=== PATIENT | female | born 1995 | race Caucasian/White ===

== ENCOUNTER 2016-07-19 11:00 | Outpatient (CLI) | payer MEDICAID, OTHER | END 2016-07-19 11:01 | disposition home or self-care (01) | DX: Z11.3 Encounter for screening for infections with a predominantly sexual mode of transmission (principal) ==

== ENCOUNTER 2016-07-19 14:30 | Outpatient (CLI) | payer MEDICAID | END 2016-07-19 14:31 | disposition home or self-care (01) | DX: R10.9 Unspecified abdominal pain (principal) ==

== ENCOUNTER 2016-07-21 10:26 | Emergency (ER) | payer MEDICAID ==
[2016-07-21] MEDS ORDERED: SODIUM CHLORIDE 0.9% 1,000 ML IV ONE (12:17)
[2016-07-21] MEDS ORDERED: ONDANSETRON 4 MG/2 ML VIAL ONE (12:17)
[2016-07-21] MEDS ORDERED: KETOROLAC 30 MG/ML VIAL ONE (12:17)
[2016-07-21] MEDS ORDERED: IOPAMIDOL-300 100 ML VIAL IVP ONE (21:29)
== END 2016-07-21 16:25 | disposition home or self-care (01) ==
DX: K52.9 Noninfective gastroenteritis and colitis, unspecified (principal)
CPT/HCPCS: 36415; 74177; 80053; 81003; 81025; 83690; 85025; 96374; 96375; 99283; 99284; Q9967

== ENCOUNTER 2017-01-23 09:20 | Outpatient (CLI) | payer MEDICAID | END 2017-01-23 09:21 | disposition home or self-care (01) | LOC: LAB.R 09:20 | PROVIDERS: ATTEND Nurse Practitioner Obstetrics & Gynecology | DX: Z11.3 Encounter for screening for infections with a predominantly sexual mode of transmission (principal) | CPT/HCPCS: 87491; 87591 ==

== ENCOUNTER 2017-02-05 09:42 | Outpatient (CLI) | payer MEDICAID ==
--- NOTE | 2017-02-05 16:34 | XRAY Report ---
COMPLETE SINUS SERIES: 02/05/2017 HISTORY: Sinusitis. FINDINGS: The visualized paranasal sinuses are clear. No fluid levels noted. There is no significa nt mucosal thickening. There are no destructive bony changes. IMPRESSION: NEGATIVE EXAMINATION. JOB #: [id number] EXT JOB #:[id number]
== END 2017-02-05 09:43 | disposition home or self-care (01) ==
LOC: DI.N 09:42
PROVIDERS: ATTEND Physician Assistant
DX: J32.9 Chronic sinusitis, unspecified (principal)
CPT/HCPCS: 70220

== ENCOUNTER 2017-05-02 14:34 | Outpatient (CLI) | payer MEDICAID | END 2017-05-02 14:35 | disposition home or self-care (01) | LOC: LAB 14:34 | PROVIDERS: ATTEND Registered Nurse | DX: O20.0 Threatened abortion (principal) | CPT/HCPCS: 36415; 84702 ==

== ENCOUNTER 2017-06-23 01:56 | Emergency (ER) | payer MEDICAID ==
[2017-06-23] MEDS ORDERED: SODIUM CHLORIDE 0.9% 1,000 ML IV ONE (02:14)
[2017-06-23 02:45] LABS: BILIRUBIN,URINE NEGATIVE (NEGATIVE); GLUCOSE, URINE (UA) NEGATIVE (NEGATIVE); KETONES,URINE (UA) 15 mg/dL (NEGATIVE); LEUKOCYTE ESTERASE, URINE NEGATIVE (NEGATIVE); NITRITE,URINE NEGATIVE (NEGATIVE); OCCULT BLOOD,URINE NEGATIVE (NEGATIVE); PH,URINE 6.5 PH (5.0-7.5); PROTEIN,URINE NEGATIVE (NEGATIVE); UROBILINOGEN,URINE 0.2 (NORMAL) E.U./dL (NORMAL)
[2017-06-23 02:50] LABS: CLARITY,URINE CLEAR (CLEAR); HCG UR QUAL NEGATIVE
[2017-06-23] MEDS ORDERED: diphenhydrAMINE INJ 50 MG/ML VIAL IVP STA (03:01)
[2017-06-23] MEDS ORDERED: ACETAMINOPHEN 500 MG TABLET PO STA (03:01)
[2017-06-23] MEDS ORDERED: KETOROLAC 60 MG/2 ML VIAL IVP STA (03:01)
[2017-06-23] MEDS ORDERED: METOCLOPRAMIDE 10 MG/2 ML VIAL IVP STA (03:01)
--- NOTE | 2017-06-23 03:01 | ED Physician Documentation ---
PD HPI HEADACHE - Stated complaint Stated Complaint: MIGRAINE - Chief complaint Chief Complaint: Neuro - History obtained from History obtained from: Patient, Family - History of Present Illness Timing - onset: Today Timing - details: Gradual onset, Still present Worst headache ever?: Worst headache ever? (no) Location: Front Quality: Aching Associated symptoms: No: Fever, Stiff neck, Nausea, Vomiting, Weakness, Syncope Improved by: Rest, Dark room Worsened by: Light Similar symptoms before: No diagnosis Recently seen: Not recently seen - Additional information Additional information: Patient is a 22 year old female with a history of migraines who is presenting to the emergency department for a headache. Patient and partner state that it started about 9 hours ago. It started gradually and got progressively worse. Patient states that she has had migraines in the past and this is similar to her previous headaches. Review of Systems Constitutional: denies: Fever, Chills, Myalgias Eyes: reports: Photophobia. denies: Decreased vision Ears: denies: Ear pain, Drainage/discharge Nose: denies: Congestion, Epistaxis Throat: denies: Sore throat Cardiac: denies: Chest pain / pressure Respiratory: reports: Reviewed and negative GI: reports: Nausea. denies: Vomiting : reports: Reviewed and negative Skin: denies: Rash, Lesions Musculoskeletal: denies: Neck pain, Extremity pain Neurologic: reports: Headache. denies: Generalized weakness, Syncope, Altered mental status, Head injury, LOC Immunocompromised: denies: Immunocompromised PD PAST MEDICAL HISTORY - Past Medical History Past Medical History: Yes Respiratory: Asthma Neuro: Headache/migraine - Past Surgical History Past Surgical History: No - Present Medications Home Medications: Ambulatory Orders Medication Instructions Recorded Confirmed Albuterol Sulf [Ventolin Hfa 2 puffs IH Q6HR PRN 04/30/17 06/23/17 Inhaler] - Allergies Allergies/Adverse Reactions: Allergies Allergy/AdvReac Type Severity Reaction Status Date / Time No Known Drug Allergies Allergy Verified 06/23/17 02:02 - Social History Does the pt smoke?: No Smoking Status: Never smoker Does the pt drink ETOH?: Yes Does the pt have substance abuse?: No - Immunizations Immunizations are current?: Yes PD ED PE NORMAL - Vitals Vital signs reviewed: Yes - General General: Alert and oriented X 3, Well developed/nourished - HEENT HEENT: Atraumatic, PERRL, Moist mucous membranes, Pharynx benign - Neck Neck: Supple, no meningeal sign, No JVD - Cardiac Cardiac: RRR, No murmur - Respiratory Respiratory: No respiratory distress, Clear bilaterally - Abdomen Abdomen: Soft, Non tender, Non distended - Derm Derm: Normal color, Warm and dry, No rash - Extremities Extremities: No deformity, Normal ROM s pain - Neuro Neuro: Alert and oriented X 3, 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, No motor deficit, No sensory deficit, Normal speech Eye Opening: Spontaneous Motor: Obeys Commands Verbal: Oriented GCS Score: 15 PD ED PE EXPANDED - General General: Alert, In Pain Results - Vitals Vitals: Vital Signs - 24 hr 06/23/17 06/23/17 06/23/17 02:00 02:59 03:15 Temperature 36.9 C Heart Rate 72 71 105 H Respiratory 18 18 19 Rate Blood Pressure 109/70 125/81 H 125/98 H O2 Saturation 100 100 100 06/23/17 03:28 Temperature Heart Rate 106 H Respiratory 18 Rate Blood Pressure 124/88 H O2 Saturation 100 Oxygen O2 Source Room air - Labs Labs: Laboratory Tests 06/23/17 02:20 Urine Color YELLOW Urine Clarity CLEAR Urine pH 6.5 Ur Specific [place] 1.020 Urine Protein NEGATIVE Urine Glucose (UA) NEGATIVE Urine Ketones 15 H Urine Occult Blood NEGATIVE Urine Nitrite NEGATIVE Urine Bilirubin NEGATIVE Urine Urobilinogen 0.2 (NORMAL) Ur Leukocyte Esterase NEGATIVE Ur Microscopic Review NOT INDICATED Urine Culture Comments NOT INDICATED Urine HCG, Qual NEGATIVE PD MEDICAL DECISION MAKING - ED course Complexity details: reviewed old records, reviewed results, re-evaluated patient , considered differential, d/w patient, d/w family ED course: Patient was seen and examined at bedside. IV access was gained and urine was collected. Patient was treated with fluid bolus, toradol, reglan, bendadryl and tylenol. After the fluid bolus and the medication patient was re- evaluated. Patient states that her headache resolved entirely. Patient required no further work up and was stable for discharge with outpatient follow up. Departure - Departure Disposition: 01 Home, Self Care Clinical Impression: Headache Condition: Good Instructions: ED Headache Migraine Follow-Up: primary,care provider [Other] - Within 3 Days Comments: Your symptoms today were caused by a migraine headache. Lack of sleep and dehydration are two of the most common causes. it is important to stay well hydrated and get plenty of rest. You should take tylenol 1000mg and ibuprofen 600mg as needed for pain. You should keep track of any triggers (foods, activities, stressors). If your symptoms become more frequent or longer in duration you should follow up with your doctor and possibly a neurologist. you may return to the emergency department at any time for new, worsening or uncontrollable symptoms.
[2017-06-23 04:13] VITALS: BP 122/89
== END 2017-06-23 04:00 | disposition home or self-care (01) ==
LOC: ED 01:56
DX: G43.909 Migraine, unspecified, not intractable, without status migrainosus (principal)
CPT/HCPCS: 81003; 81025; 96361; 96374; 96375; 99284; A9270; 81001; 87086

== ENCOUNTER 2019-10-02 12:57 | Outpatient (CLI) | payer MEDICAID ==
--- NOTE | 2019-10-03 07:11 | Ultrasound Report ---
Reason: POSITIVE TEST Procedure Date: 10/02/2019 Accession Number: [id number] / [id number] Procedure: US - OB First Trimester CPT Code: Final Report FULL RESULT: EXAM: FIRST TRIMESTER OBSTETRIC ULTRASOUND (Less than 11 weeks) EXAM DATE: 10/02/2019 02:59 PM. CLINICAL HISTORY: POSITIVE TEST. LMP: 08/18/2019. COMPARISONS: None for this . TECHNIQUE: Transabdominal and transvaginal ultrasound examination with static image documentation. CLINICAL DATES: EGA 9 weeks 2 days with RADHA 05/04/2020 based on LMP. ASSESSMENT: Gestational Sac: Single intrauterine. Mean gestational sac diameter: 25.7 mm = 7 weeks 4 days. Embryo: CRL (crown-rump length) 13.0 mm = 7 weeks 4 days with RADHA 05/16/2020. Cardiac activity: 153 beats per minute. Yolk sac: 4.7 mm. Amniotic fluid: Not accurately assessed at this gestational age. Early placenta: Not visible at this gestational age. Other: No perigestational fluid collection demonstrated. MATERNAL STRUCTURES: Uterus: Anteverted. Unremarkable. Cervix: Closed. Right Ovary/Adnexa: The ovary measures 3.3 x 2.2 x 3.1 cm, volume 11.7 cc. Corpus luteum cyst measuring 2.1 x 1.6 x 1.9 cm. Otherwise unremarkable.. Left Ovary/Adnexa: The ovary measures 3.4 x 2.2 x 1.7 cm, volume 6.6 cc. Unremarkable. Free Fluid: Trace free fluid in pelvic cul-de-sac. Other: None. IMPRESSION: 1. Single viable intrauterine at EGA 7 weeks 4 days with RADHA 05/16/2020 based on crown-rump length, which is less than expected clinical dates. 2. Assigned dating is RADHA 05/16/2020 based on current ultrasound. 3. Trace free fluid in pelvic cul-de-sac, nonspecific. RADIA
== END 2019-10-02 12:58 | disposition home or self-care (01) ==
LOC: DI 12:57
PROVIDERS: ATTEND Obstetrics & Gynecology
DX: Z32.01 Encounter for pregnancy test, result positive (principal)
CPT/HCPCS: 76801; 76817

== ENCOUNTER 2019-10-15 08:00 | Outpatient (CLI) | payer MEDICAID ==
[2019-10-15 17:49] LABS: MUDS CUTOFF CONCENTRATIONS CUTOFF CONC BELOW:
[2019-10-15 17:56] LABS: BILIRUBIN,URINE NEGATIVE (NEGATIVE); GLUCOSE, URINE (UA) NEGATIVE (NEGATIVE); KETONES,URINE (UA) NEGATIVE (NEGATIVE); LEUKOCYTE ESTERASE, URINE NEGATIVE (NEGATIVE); NITRITE,URINE NEGATIVE (NEGATIVE); OCCULT BLOOD,URINE NEGATIVE (NEGATIVE); PROTEIN,URINE NEGATIVE (NEGATIVE); UROBILINOGEN,URINE 0.2 (NORMAL) E.U./dL (NORMAL)
[2019-10-15 18:06] LABS: BACTERIA,URINE None Seen /HPF (None Seen); CLARITY,URINE CLEAR (CLEAR); MUCUS,URINE Marked Strands; RBC,URINE None Seen /HPF (0-5); SQUAMOUS EPITHELIAL CELL,UR FEW Squamous (<= Few)
[2019-10-15 18:07] LABS: AMPHETAMINE SCREEN,URINE NEGATIVE (NEGATIVE); BENZODIAZEPINES SCREEN, URINE NEGATIVE (NEGATIVE); COCAINE SCREEN URINE NEGATIVE (NEGATIVE); METHADONE SCREEN, URINE NEGATIVE (NEGATIVE); METHAMPHETAMINES SCREEN, URINE NEGATIVE (NEGATIVE); OPIATE SCREEN, URINE NEGATIVE (NEGATIVE); OXYCODONE SCREEN, URINE NEGATIVE (NEGATIVE); PROPOXYPHENE SCREEN, URINE NEGATIVE (NEGATIVE); TRICYCLIC ANTIDEPRESSANT,URINE NEGATIVE (NEGATIVE)
== END 2019-10-15 23:59 | disposition home or self-care (01) ==
LOC: LAB.R 08:00
PROVIDERS: ATTEND Obstetrics & Gynecology
DX: Z36.89 Encounter for other specified antenatal screening (principal)
CPT/HCPCS: 80306; 81001; 87086

== ENCOUNTER 2019-11-06 13:25 | Emergency (ER) | payer MEDICAID ==
--- NOTE | 2019-11-06 15:53 | ED Physician Documentation ---
PD HPI ABD PAIN - Stated complaint Stated Complaint: ABD Pain - Chief complaint Chief Complaint: Abd Pain - History obtained from History obtained from: Patient ( at 12 weeks gestation with history of a single ectopic And bicornuate uterus presents with a sensation of contractions over the last few hours happening every 5 minutes. It is continuing. No bleeding or fluid loss.) Review of Systems Constitutional: denies: Fever, Chills Throat: reports: Reviewed and negative Cardiac: reports: Reviewed and negative PD PAST MEDICAL HISTORY - Past Medical History Respiratory: Asthma - Past Surgical History Past Surgical History: No - Present Medications Home Medications: Ambulatory Orders Medication Instructions Recorded Confirmed Albuterol Sulf [Ventolin Hfa 2 puffs IH Q6HR PRN 04/30/17 06/23/17 Inhaler] - Allergies Allergies/Adverse Reactions: Allergies Allergy/AdvReac Type Severity Reaction Status Date / Time No Known Drug Allergies Allergy Verified 11/06/19 13:35 - Social History Does the pt smoke?: No Smoking Status: Never smoker Does the pt drink ETOH?: Yes Does the pt have substance abuse?: No - Immunizations Immunizations are current?: Yes PD ED PE NORMAL - Vitals Vital signs reviewed: Yes - General General: Alert and oriented X 3, No acute distress - Abdomen Abdomen: Normal bowel sounds, Soft, Non tender - Female Female : Other (Gravid belly, bedside ultrasound showing single live intrauterine with to 146.) - Neuro Neuro: Alert and oriented X 3, Normal speech Results - Vitals Vitals: Vital Signs - 24 hr 11/06/19 11/06/19 13:35 17:01 Temperature 36.6 C Heart Rate 78 Respiratory 15 Rate Blood Pressure 105/67 111/81 H O2 Saturation 99 Oxygen O2 Source Room air - Labs Labs: Laboratory Tests 11/06/19 16:08 Urine Color YELLOW Urine Clarity CLEAR Urine pH 5.5 Ur Specific [place] >=1.030 H Urine Protein NEGATIVE Urine Glucose (UA) NEGATIVE Urine Ketones 15 H Urine Occult Blood NEGATIVE Urine Nitrite NEGATIVE Urine Bilirubin NEGATIVE Urine Urobilinogen 0.2 (NORMAL) Ur Leukocyte Esterase NEGATIVE Ur Microscopic Review NOT INDICATED Urine Culture Comments NOT INDICATED PD MEDICAL DECISION MAKING - ED course ED course: 24-year-old woman presents with cramping in early , bedside ultrasound shows live intrauterine . Patient was very concerned and anxious, discussed with her there were really any therapeutic interventions available to prevent miscarriage although she does not seem to have an impending merits of miscarriage. She was still tenuous and concerned so I did speak with the on- call over the by phone, Dr. Sanchez who confirmed no therapeutic interventions were indicated. Departure - Departure Disposition: 01 Home, Self Care Clinical Impression: Cramping affecting , antepartum Condition: Good Record reviewed to determine appropriate education?: Yes Instructions: ED Preg Established Normal Sxs Follow-Up: Na Enamorado MD [Provider Admit Priv/Credential] - Comments: Call your doctor to arrange a follow-up appointment, make the next available appointment. In the interim, return anytime if worse or if new symptoms develop. Discharge Date/Time: 11/06/19 17:00
[2019-11-06 16:33] LABS: BILIRUBIN,URINE NEGATIVE (NEGATIVE); GLUCOSE, URINE (UA) NEGATIVE (NEGATIVE); KETONES,URINE (UA) 15 mg/dL (NEGATIVE); LEUKOCYTE ESTERASE, URINE NEGATIVE (NEGATIVE); NITRITE,URINE NEGATIVE (NEGATIVE); OCCULT BLOOD,URINE NEGATIVE (NEGATIVE); PH,URINE 5.5 PH (5.0-7.5); PROTEIN,URINE NEGATIVE (NEGATIVE); UROBILINOGEN,URINE 0.2 (NORMAL) E.U./dL (NORMAL)
[2019-11-06 16:39] LABS: CLARITY,URINE CLEAR (CLEAR)
[2019-11-06 17:01] VITALS: BP 111/81
== END 2019-11-06 17:00 | disposition home or self-care (01) ==
LOC: ED 13:25
DX: O26.891 Other specified pregnancy related conditions, first trimester (principal); R10.9 Unspecified abdominal pain; O09.11 Supervision of pregnancy with history of ectopic pregnancy, first trimester; Z3A.12 12 weeks gestation of pregnancy
CPT/HCPCS: 81001; 81003; 87086; 99283

== ENCOUNTER 2019-12-10 10:26 | Outpatient (CLI) | payer MEDICAID | END 2019-12-10 10:27 | disposition home or self-care (01) | LOC: LAB 10:26 | PROVIDERS: ATTEND Obstetrics & Gynecology | DX: O09.90 Supervision of high risk pregnancy, unspecified, unspecified trimester (principal) | CPT/HCPCS: 36415; 81599; 82105 ==

== ENCOUNTER 2019-12-30 12:14 | Outpatient (CLI) | payer MEDICAID ==
[2019-12-30 12:34] LABS: BASOPHILS % (AUTO) 0.3 %; EOSINOPHILS # (AUTO) 0.1 10^3/uL (0.0-0.7); EOSINOPHILS % (AUTO) 1.1 %; HGB - HEMOGLOBIN 12.3 g/dL (12.0-16.0); LYMPHOCYTES # (AUTO) 1.2 10^3/uL (1.5-3.5); LYMPHOCYTES % (AUTO) 16.4 %; MEAN CORPUSCULAR HEMOGLOBIN 33.3 pg (27.0-31.0); MEAN CORPUSCULAR HGB CONC 36.3 g/dL (32.0-36.0); MEAN CORPUSCULAR VOLUME 91.9 fL (81.0-99.0); MEAN PLATELET VOLUME 8.8 fL (7.9-10.8); MONOCYTES # (AUTO) 0.5 10^3/uL (0.0-1.0); MONOCYTES % (AUTO) 7.5 %; NEUTROPHILS # (AUTO) 5.3 10^3/uL (1.5-6.6); NEUTROPHILS % (AUTO) 74.3 %; PLT - PLATELET COUNT 277 10^3/uL (130-450); RED BLOOD COUNT 3.69 10^6/uL (4.20-5.40); RED CELL DISTRIBUTION WIDTH 12.4 % (12.0-15.0); WHITE BLOOD COUNT 7.1 x10^3/uL (4.8-10.8)
[2019-12-31 12:34] LABS: HEPATITIS C ANTIBODY NON-REACTIVE (NON-REACTIVE); HIV AG/AB 4TH GEN NON-REACTIVE (NON-REACTIVE)
[2019-12-31 14:14] LABS: HEPATITIS B SURFACE ANTIGEN NON-REACTIVE (NON-REACTIVE)
== END 2019-12-30 12:15 | disposition home or self-care (01) ==
LOC: LAB 12:14
PROVIDERS: ATTEND Obstetrics & Gynecology
DX: Z36.89 Encounter for other specified antenatal screening (principal)
CPT/HCPCS: 36415; 81599; 85025; 86592; 86762; 86803; 86850; 86900; 86901; 87340; 87389

== ENCOUNTER 2021-12-18 18:31 | Emergency (ER) | payer MEDICAID ==
[2021-12-18 19:25] LABS: BASOPHILS % (AUTO) 0.4 %; EOSINOPHILS # (AUTO) 0.1 10^3/uL (0.0-0.7); EOSINOPHILS % (AUTO) 1.1 %; HCT - HEMATOCRIT 35.9 % (37.0-47.0); HGB - HEMOGLOBIN 12.8 g/dL (12.0-16.0); LYMPHOCYTES # (AUTO) 2.1 10^3/uL (1.5-3.5); LYMPHOCYTES % (AUTO) 28.6 %; MEAN CORPUSCULAR HEMOGLOBIN 32.6 pg (27.0-31.0); MEAN CORPUSCULAR HGB CONC 35.7 g/dL (32.0-36.0); MEAN CORPUSCULAR VOLUME 91.3 fL (81.0-99.0); MONOCYTES # (AUTO) 0.5 10^3/uL (0.0-1.0); MONOCYTES % (AUTO) 6.9 %; NEUTROPHILS # (AUTO) 4.6 10^3/uL (1.5-6.6); NEUTROPHILS % (AUTO) 62.7 %; PLT - PLATELET COUNT 309 10^3/uL (130-450); RED BLOOD COUNT 3.93 10^6/uL (4.20-5.40); RED CELL DISTRIBUTION WIDTH 11.5 % (12.0-15.0); WHITE BLOOD COUNT 7.4 x10^3/uL (4.8-10.8)
[2021-12-18 19:35] LABS: CALCIUM 9.5 mg/dL (8.5-10.3); CREATININE 0.8 mg/dL (0.4-1.0); POTASSIUM 3.4 mmol/L (3.5-5.0)
--- NOTE | 2021-12-18 19:38 | ED Physician Documentation ---
PD HPI ABD PAIN - Stated complaint Stated Complaint: CRAMPING,VAGINAL BLEEDING - Chief complaint Chief Complaint: Abd Pain - History obtained from History obtained from: Patient - Additional information Additional information: 26yo at 12w with cramping and bleeding starting this afternoon about the same as a normal menses. Review of Systems Constitutional: denies: Fever, Chills Cardiac: reports: Reviewed and negative Respiratory: reports: Reviewed and negative GI: reports: Abdominal Pain. denies: Nausea, Vomiting, Diarrhea PD PAST MEDICAL HISTORY - Past Medical History Respiratory: Asthma - Past Surgical History Past Surgical History: No - Present Medications Home Medications: Ambulatory Orders Medication Instructions Recorded Confirmed Albuterol Sulf [Ventolin Hfa 2 puffs IH Q6HR PRN 04/30/17 12/18/21 Inhaler] - Allergies Allergies/Adverse Reactions: Allergies Allergy/AdvReac Type Severity Reaction Status Date / Time No Known Drug Allergies Allergy Verified 12/18/21 18:40 - Social History Does the pt smoke?: No Smoking Status: Never smoker Does the pt drink ETOH?: Yes Does the pt have substance abuse?: No - Immunizations Immunizations are current?: Yes PD ED PE NORMAL - Vitals Vital signs reviewed: Yes - General General: Alert and oriented X 3, No acute distress - Abdomen Abdomen: Normal bowel sounds, Soft, Non tender, Other (Bedside sono with single live IUP HR 150s) - Neuro Neuro: Alert and oriented X 3, Normal speech Results - Vitals Vitals: Vital Signs - 24 hr 12/18/21 12/18/21 18:37 19:50 Temperature 37.0 C Heart Rate 96 95 Respiratory 14 18 Rate Blood Pressure 114/76 120/76 O2 Saturation 98 99 Oxygen O2 Source Room air - Labs Labs: Laboratory Tests 12/18/21 12/18/21 12/18/21 19:18 19:18 19:18 WBC 7.4 RBC 3.93 L Hgb 12.8 Hct 35.9 L MCV 91.3 MCH 32.6 H MCHC 35.7 RDW 11.5 L Plt Count 309 MPV 9.0 Neut # (Auto) 4.6 Lymph # (Auto) 2.1 [place] # (Auto) 0.5 Eos # (Auto) 0.1 Baso # (Auto) 0.0 Absolute Nucleated RBC 0.00 Nucleated RBC % 0.0 Sodium 132 L Potassium 3.4 L Chloride 100 L Carbon Dioxide 23 Anion Gap 9.0 BUN 11 Creatinine 0.8 Estimated GFR (MDRD) 85 L Glucose 102 H Calcium 9.5 HCG, Quant Blood Type O NEGATIVE 12/18/21 19:18 WBC RBC Hgb Hct MCV MCH MCHC RDW Plt Count MPV Neut # (Auto) Lymph # (Auto) [place] # (Auto) Eos # (Auto) Baso # (Auto) Absolute Nucleated RBC Nucleated RBC % Sodium Potassium Chloride Carbon Dioxide Anion Gap BUN Creatinine Estimated GFR (MDRD) Glucose Calcium HCG, Quant 89770.00 Blood Type PD MEDICAL DECISION MAKING - ED course ED course: with threatened AB at 12 weeks.Bedside ultrasound in the department demonstrates single live intrauterine . Case discussed with Dr. Ramesh, on-call OB here who recommends no other specific therapy other than return precautions and follow-up. During her original visit she told me her blood type was O+ and she was discharged subsequent to that, on review of the chart prior to locking the chart, her blood type was O- and I called the patient and encouraged her to return for RhoGAM. Departure - Departure Disposition: 01 Home, Self Care Clinical Impression: Threatened miscarriage Condition: Good Record reviewed to determine appropriate education?: Yes Instructions: ED Miscarriage Poss Follow-Up: Stella Mars DO [Provider Admit Priv/Credential] - Comments: Call your doctor to arrange a follow-up appointment, make the next available appointment. In the interim, return anytime if worse or if new symptoms develop. Discharge Date/Time: 12/18/21 19:50
[2021-12-18 20:01] VITALS: BP 120/76
== END 2021-12-18 19:50 | disposition home or self-care (01) ==
LOC: ED 18:31
DX: O20.0 Threatened abortion (principal); Z3A.12 12 weeks gestation of pregnancy
CPT/HCPCS: 36415; 80048; 84702; 85025; 86900; 86901; 99283

== ENCOUNTER 2021-12-18 21:05 | Emergency (ER) | payer MEDICAID ==
[2021-12-18] MEDS ORDERED: RHO(D) IMMUNE GLOBULIN 300 MCG SYRINGE IM STA (21:10)
[2021-12-18 21:25] VITALS: BP 118/72
--- NOTE | 2021-12-18 21:31 | ED Physician Documentation ---
History of Present Illness - Stated complaint Stated Complaint: BLEEDING AND CRAMPING - Chief complaint Chief Complaint: General - History obtained from History obtained from: Patient - Additonal information Additional information: 26-year-old woman seen earlier for threatened . She had said her blood type was O+ but we had run a blood type which resulted after her discharge is O- and she was called and returns for Rh antibody. Her original history earlier in the evening (blood type O +) was corroborated with her claimed blood type given that I asked her if she had had any shots to prevent damage to further pregnancies and she had not. However when this was discussed further after results of her actual blood type she states that it was recommended she have these shots and she had declined them in the past. Review of Systems Constitutional: denies: Fever, Chills Nose: reports: Reviewed and negative Throat: reports: Reviewed and negative Cardiac: reports: Reviewed and negative Respiratory: reports: Reviewed and negative PD PAST MEDICAL HISTORY - Past Medical History Respiratory: Asthma - Past Surgical History Past Surgical History: No - Present Medications Home Medications: Ambulatory Orders Medication Instructions Recorded Confirmed Albuterol Sulf [Ventolin Hfa 2 puffs IH Q6HR PRN 04/30/17 12/18/21 Inhaler] - Allergies Allergies/Adverse Reactions: Allergies Allergy/AdvReac Type Severity Reaction Status Date / Time No Known Drug Allergies Allergy Verified 12/18/21 21:23 - Social History Does the pt smoke?: No Smoking Status: Never smoker Does the pt drink ETOH?: Yes Does the pt have substance abuse?: No - Immunizations Immunizations are current?: Yes PD ED PE NORMAL - Vitals Vital signs reviewed: Yes - General General: Alert and oriented X 3, No acute distress - Neuro Neuro: Alert and oriented X 3, Normal speech Results - Vitals Vitals: Vital Signs - 24 hr 12/18/21 12/18/21 21:23 21:34 Temperature 37 C Heart Rate 82 82 Respiratory 16 16 Rate Blood Pressure 118/72 118/72 O2 Saturation 99 99 Oxygen O2 Source Room air PD MEDICAL DECISION MAKING - ED course ED course: She had many questions about RhoGAM and these were answered and she would like to go ahead with it and it was administered. Departure - Departure Disposition: 01 Home, Self Care Clinical Impression: Rh negative status during Qualifiers: Trimester: first trimester Qualified Code(s): O26.891 - Other specified related conditions, first trimester Condition: Good Record reviewed to determine appropriate education?: Yes Instructions: Rh0 [D] Immune Globulin injection Comments: You can still expect a call from the chute boss. Return for new or worsening symptoms. Discharge Date/Time: 12/18/21 21:33
== END 2021-12-18 21:33 | disposition home or self-care (01) ==
LOC: ED 21:05
DX: Z29.13 Encounter for prophylactic Rho(D) immune globulin (principal); O20.0 Threatened abortion; Z3A.12 12 weeks gestation of pregnancy
CPT/HCPCS: 36415; 80048; 84702; 85025; 86900; 86901; 99283